=== PATIENT | male | born 1955 | race Caucasian/White ===

== ENCOUNTER → 2019-03-19 | Outpatient (CLI) | payer OTHER | END | disposition home or self-care (01) | LOC: CFH 06:54 | PROVIDERS: ATTEND Internal Medicine Cardiovascular Disease | DX: I08.2 Rheumatic disorders of both aortic and tricuspid valves (principal); I11.0 Hypertensive heart disease with heart failure; E78.5 Hyperlipidemia, unspecified; R00.2 Palpitations; Z72.0 Tobacco use | CPT/HCPCS: 78452; 93017; 93306; A9502 ==

== ENCOUNTER 2019-07-28 15:55 | Inpatient (IN) | payer OTHER, MEDICARE ==
[~2019-07-28] VITALS: Ht 177.8 cm; Wt 84.8 kg
[2019-07-28 17:20] LABS: BASOPHILS # (AUTO) 0.06 x10^3/uL (0-0.1); BASOPHILS % (AUTO) 1 % (0-1); EOSINOPHILS # (AUTO) 0.09 x10^3/uL (0-0.4); EOSINOPHILS % (AUTO) 1 % (1-7); LYMPHOCYTES # (AUTO) 3.05 x10^3/uL (1-3.4); LYMPHOCYTES % (AUTO) 26 % (22-44); MD NO; MEAN CORPUSCULAR HEMOGLOBIN 34.1 pg (27.5-34.5); MEAN CORPUSCULAR HGB CONC 33.8 g/dL (33.2-36.2); MEAN CORPUSCULAR VOLUME 100.9 fL (81-97); MEAN PLATELET VOLUME 9.1 fL (7.4-10.4); MONOCYTES # (AUTO) 1.31 x10^3/uL (0.2-0.8); MONOCYTES % (AUTO) 11 % (2-9); NEUTROPHILS # (AUTO) 7.47 x10^3/uL (1.8-6.8); NEUTROPHILS % (AUTO) 62 % (42-75); PLATELET COUNT 232 x10^3/uL (130-400); RED BLOOD COUNT 4.31 x10^6/uL (4.38-5.82); RED CELL DISTRIBUTION WIDTH 12.7 % (9.4-14.8)
[2019-07-28 17:30] LABS: ALBUMIN 3.9 g/dL (3.4-5.0); ANION GAP 15 mmol/L (5-15); CALCIUM 9.1 mg/dL (8.5-10.1); CHLORIDE 98 mmol/L (98-107)
[2019-07-28 17:35] LABS: ALANINE AMINOTRANSFERASE 71 U/L (12-78); ALKALINE PHOSPHATASE 66 U/L (45-117); BILIRUBIN,TOTAL 0.8 mg/dL (0.2-1.0); CREATININE 2.34 mg/dL (0.7-1.3); TOTAL PROTEIN 7.4 g/dL (6.4-8.2)
[2019-07-28] MEDS ORDERED: ONDANSETRON 2MG/ML, 2ML ONE (17:46)
[2019-07-28] MEDS ORDERED: LORazepam 2 MG/ML, 1ML ONE (17:46)
[2019-07-28] MEDS ORDERED: SODIUM CHLORIDE FLUSH 10ML SYR IVF ONE (18:00)
[2019-07-28] MEDS ORDERED: SODIUM CHLORIDE 0.9% 1,000ML IVBOLUS ONE ×2 (18:00→19:00)
[2019-07-28] MEDS ORDERED: ONDANSETRON 2MG/ML, 2ML IVPush ONE (18:00)
[2019-07-28] MEDS ORDERED: NS + 20MEQ KCL 1,000 ML IV SCH (18:00)
[2019-07-28] MEDS ORDERED: LORazepam 2 MG/ML, 1ML IVPush ONE (18:00)
[2019-07-28] MEDS ORDERED: MAGNESIUM SULFATE 1 GM, THIAMINE 100 MG, FOLIC ACID 1 MG, MVI ADULT 10 ML in SODIUM CHL... IV ONE (18:00)
[2019-07-28] MEDS ORDERED: NS + 20MEQ KCL 1,000 ML IV ONE (18:18)
[2019-07-28] MEDS ORDERED: POLYETHYLENE GLYCOL 17 GM PACKET PO PRN (19:00)
[2019-07-28] MEDS ORDERED: LORazepam 2 MG/ML, 1ML IVPush PRN (19:00)
[2019-07-28] MEDS ORDERED: ONDANSETRON 2MG/ML, 2ML IVPush PRN (19:00)
[2019-07-28] MEDS ORDERED: BISACODYL 10 MG SUPP PR PRN (19:00)
[2019-07-28] MEDS ORDERED: CHLORDIAZEPOXIDE 25 MG CAPSULE ONE (19:36)
[2019-07-28] MEDS: CHLORDIAZEPOXIDE 25 MG CAPSULE PO PRN (19:38)
--- NOTE | 2019-07-28 19:45 | NUR ---
PT UP TO RESTROOM AND BACK WITHOUT ANY ASSISTANCE, STRONG STEADY INDEPENDENT GAIT. DENIES ANY PAIN AT THIS TIME. FINE TREMORS IN HANDS, PT MEDICATED PER MAR. FLUIDS CONTINUE INFUSING WITHOUT ISSUE. DENIES ANY NEEDS OR CONCERNS. CALL LIGHT IN REACH. REPORT TO AN [place] RN. PT AWAITING TRANSPORT AT THIS TIME.
[2019-07-28 20:45] VITALS: BP 111/72
[2019-07-28] MEDS ORDERED: lisinopril PO (21:01)
[2019-07-28] MEDS ORDERED: METO25TA91 PO (21:04)
[2019-07-28] MEDS ORDERED: amlodipine PO (21:04)
[2019-07-28] MEDS ORDERED: sertraline PO (21:04)
[2019-07-28] MEDS ORDERED: OMEP20TA62 PO (21:04)
[2019-07-28] MEDS ORDERED: Diuretic PO (21:04)
[2019-07-28] MEDS: NICOTINE 14MG/24 HR PATCH.TD24 TD SCH (22:24)
[2019-07-28] MEDS: SERTRALINE 50MG TABLET PO SCH (22:24)
[2019-07-28] MEDS: morphine SULFATE 10 MG/ML, 1ML IVPush PRN (22:24)
[2019-07-28] MEDS: POTASSIUM CHLORIDE 20 MEQ, MAGNESIUM SULFATE 1 GM, FOLIC ACID 1 MG, THIAMINE 200 MG, MV... IV SCH (23:04)
[2019-07-29] MEDS ORDERED: ALBUTEROL SULFATE 2.5 MG/3 ML ONE (00:17)
[2019-07-29 00:36] VITALS: BP 111/65
[2019-07-29] MEDS: ALBUTEROL/IPRATROPIUM 2.5MG/0.5MG, 3 ML NPPB SCH ×2 (03:00→08:50)
[2019-07-29] MEDS: morphine SULFATE 10 MG/ML, 1ML IVPush PRN ×2 (03:40→09:51)
[2019-07-29] MEDS ORDERED: ROSU20TA2 PO (05:57)
[2019-07-29] MEDS ORDERED: diuretic PO (05:57)
[2019-07-29] MEDS ORDERED: METO-93 PO (05:57)
[2019-07-29] MEDS ORDERED: albuterol IH (05:57)
[2019-07-29] MEDS ORDERED: LISI40TA PO (05:57)
[2019-07-29] MEDS ORDERED: SERT50TA28 PO (05:57)
[2019-07-29] MEDS ORDERED: AMLO10TA8 PO (05:57)
[2019-07-29 06:27] LABS: BASOPHILS # (AUTO) 0.04 x10^3/uL (0-0.1); BASOPHILS % (AUTO) 1 % (0-1); EOSINOPHILS # (AUTO) 0.15 x10^3/uL (0-0.4); EOSINOPHILS % (AUTO) 2 % (1-7); LYMPHOCYTES # (AUTO) 2.18 x10^3/uL (1-3.4); LYMPHOCYTES % (AUTO) 33 % (22-44); MD NO; MEAN CORPUSCULAR HEMOGLOBIN 34.3 pg (27.5-34.5); MEAN CORPUSCULAR HGB CONC 33.5 g/dL (33.2-36.2); MEAN CORPUSCULAR VOLUME 102.3 fL (81-97); MEAN PLATELET VOLUME 8.6 fL (7.4-10.4); MONOCYTES # (AUTO) 0.83 x10^3/uL (0.2-0.8); MONOCYTES % (AUTO) 12 % (2-9); NEUTROPHILS # (AUTO) 3.48 x10^3/uL (1.8-6.8); NEUTROPHILS % (AUTO) 52 % (42-75); PLATELET COUNT 140 x10^3/uL (130-400); RED BLOOD COUNT 3.25 x10^6/uL (4.38-5.82); RED CELL DISTRIBUTION WIDTH 12.5 % (9.4-14.8)
[2019-07-29 06:36] LABS: ALBUMIN 2.7 g/dL (3.4-5.0); ANION GAP 7 mmol/L (5-15); CALCIUM 7.7 mg/dL (8.5-10.1); CHLORIDE 107 mmol/L (98-107)
[2019-07-29 06:40] LABS: ALANINE AMINOTRANSFERASE 51 U/L (12-78); ALKALINE PHOSPHATASE 45 U/L (45-117); BILIRUBIN,TOTAL 0.6 mg/dL (0.2-1.0); TOTAL PROTEIN 5.2 g/dL (6.4-8.2)
[2019-07-29 08:31] VITALS: BP 118/74
[2019-07-29] MEDS: CHLORDIAZEPOXIDE 25 MG CAPSULE PO PRN ×2 (08:49→17:44)
[2019-07-29] MEDS: SENNA/DOCUSATE TABLET PO SCH (08:49)
[2019-07-29] MEDS ORDERED: LORazepam 1MG TABLET PO PRN (12:00)
[2019-07-29 14:30] VITALS: BP 100/65
[2019-07-29] MEDS ORDERED: ALBUTEROL/IPRATROPIUM 2.5MG/0.5MG, 3 ML NPPB PRN (15:00)
[2019-07-29] MEDS: MORPHINE SULFATE 4 MG/ML, 1ML IVPush PRN ×3 (15:05→23:34)
[2019-07-29 18:52] VITALS: BP 138/79
[2019-07-29] MEDS: NICOTINE 14MG/24 HR PATCH.TD24 TD SCH (20:03)
[2019-07-29] MEDS: SERTRALINE 50MG TABLET PO SCH (20:04)
[2019-07-29] MEDS: POTASSIUM CHLORIDE 20 MEQ, MAGNESIUM SULFATE 1 GM, FOLIC ACID 1 MG, THIAMINE 200 MG, MV... IV SCH (23:11)
[2019-07-30 01:31] VITALS: BP 115/73
[2019-07-30] MEDS: MORPHINE SULFATE 4 MG/ML, 1ML IVPush PRN ×3 (04:39→13:27)
[2019-07-30 06:17] LABS: BASOPHILS # (AUTO) 0.03 x10^3/uL (0-0.1); BASOPHILS % (AUTO) 1 % (0-1); EOSINOPHILS # (AUTO) 0.14 x10^3/uL (0-0.4); EOSINOPHILS % (AUTO) 3 % (1-7); LYMPHOCYTES # (AUTO) 1.84 x10^3/uL (1-3.4); LYMPHOCYTES % (AUTO) 34 % (22-44); MD NO; MEAN CORPUSCULAR HEMOGLOBIN 34.3 pg (27.5-34.5); MEAN CORPUSCULAR HGB CONC 33.7 g/dL (33.2-36.2); MEAN CORPUSCULAR VOLUME 101.7 fL (81-97); MEAN PLATELET VOLUME 8.8 fL (7.4-10.4); MONOCYTES # (AUTO) 0.67 x10^3/uL (0.2-0.8); MONOCYTES % (AUTO) 13 % (2-9); NEUTROPHILS # (AUTO) 2.69 x10^3/uL (1.8-6.8); NEUTROPHILS % (AUTO) 50 % (42-75); PLATELET COUNT 162 x10^3/uL (130-400); RED BLOOD COUNT 3.35 x10^6/uL (4.38-5.82); RED CELL DISTRIBUTION WIDTH 12.9 % (9.4-14.8)
[2019-07-30 06:26] LABS: ALBUMIN 2.8 g/dL (3.4-5.0); ANION GAP 7 mmol/L (5-15); CALCIUM 8.6 mg/dL (8.5-10.1); CHLORIDE 106 mmol/L (98-107)
[2019-07-30 06:32] LABS: ALANINE AMINOTRANSFERASE 52 U/L (12-78); ALKALINE PHOSPHATASE 47 U/L (45-117); BILIRUBIN,TOTAL 0.6 mg/dL (0.2-1.0); CREATININE 0.72 mg/dL (0.7-1.3); TOTAL PROTEIN 5.5 g/dL (6.4-8.2)
[2019-07-30 07:08] VITALS: BP 135/77
[2019-07-30] MEDS: SENNA/DOCUSATE TABLET PO SCH (09:00)
[2019-07-30 12:50] VITALS: BP 122/67
[2019-07-30] MEDS ORDERED: OMEP20TA62 PO (14:48)
== END 2019-07-30 16:16 | disposition home or self-care (01) | DRG 438 ==
LOC: ED 16:57 → EDIP 18:09 → 4EST 20:22 → DCLOUNGE 07-30 16:12
PROVIDERS: ADMIT Family Medicine; ATTEND Internal Medicine
DX: K85.20 Alcohol induced acute pancreatitis without necrosis or infection (principal); N17.0 Acute kidney failure with tubular necrosis; E87.1 Hypo-osmolality and hyponatremia; F10.239 Alcohol dependence with withdrawal, unspecified; E78.5 Hyperlipidemia, unspecified; E86.0 Dehydration; E87.6 Hypokalemia; F17.210 Nicotine dependence, cigarettes, uncomplicated; I10 Essential (primary) hypertension; K70.9 Alcoholic liver disease, unspecified; K76.0 Fatty (change of) liver, not elsewhere classified; G89.29 Other chronic pain; M54.9 Dorsalgia, unspecified; I95.9 Hypotension, unspecified; R00.0 Tachycardia, unspecified; Z80.0 Family history of malignant neoplasm of digestive organs
CPT/HCPCS: 36415; 96374; 96375; 99285; J7121; 76700; 80053; 83690; 83735; 84100; 85025; 93005; 94640; G0378; J2405; J3411; J3475; J3480; J2060; J2270; J7030

== ENCOUNTER → 2020-02-05 | Outpatient (CLI) | payer OTHER, MEDICARE ==
[~2020-02-05] MED LIST: AMLO-211 PO; Diuretic PO; LISI40TA PO; METO-93 PO; METO25TA91 PO; OMEP20TA62 PO; ROSU20TA2 PO; SERT50TA28 PO; albuterol IH; amlodipine PO; diuretic PO; lisinopril PO; sertraline PO
== END | disposition home or self-care (01) ==
LOC: STAR 10:22
PROVIDERS: ATTEND Anesthesiology
DX: Z20.828 Contact with and (suspected) exposure to other viral communicable diseases (principal)
CPT/HCPCS: 87635

== ENCOUNTER 2020-02-07 14:43 | Inpatient (IN) | payer OTHER, MEDICARE ==
[~2020-02-07] VITALS: Ht 177.8 cm; Wt 77.9 kg
--- NOTE | 2020-02-07 15:14 | NUR ---
THIS IS A 64 YO M W/ C/O VOMITING X1 WEEK AND ABD PAIN X3 DAYS. PT REPORTS SYNCOPAL EPISODE YESTERDAY. PT REPORTS HX OF HTN AND PANCREATITIS. DENIES CHANGES IN BP MEDS. PT HYPOTENSIVE, OTHER VS WDL. PT RESTING ON GURNEY W/ CALL LIGHT IN REACH, SIDE RAILS UPX2 AND FAMILY AT BEDSIDE. CONVERSING W/O DIFFICULTY, NADN.
--- NOTE | 2020-02-07 15:16 | NUR ---
PIV STARTED, LABS DRAWN AND SENT. IV BOLUS STARTED, PT TAKEN TO RAD.
[2020-02-07] MEDS ORDERED: ONDANSETRON 2MG/ML, 2ML ONE (15:22)
[2020-02-07] MEDS ORDERED: FAMOTIDINE 20 MG/2 ML ONE (15:22)
[2020-02-07] MEDS ORDERED: FENTANYL PF 100 MCG/2ML ONE (15:22)
[2020-02-07 15:23] LABS: BASOPHILS % (AUTO) 1 % (0-1); EOSINOPHILS % (AUTO) 2 % (1-7); LYMPHOCYTES % (AUTO) 28 % (22-44); MEAN CORPUSCULAR HEMOGLOBIN 34.1 pg (27.5-34.5); MEAN CORPUSCULAR HGB CONC 35.1 g/dL (33.2-36.2); MEAN PLATELET VOLUME 8.3 fL (7.4-10.4); MONOCYTES % (AUTO) 9 % (2-9); NEUTROPHILS % (AUTO) 61 % (42-75); PLATELET COUNT 335 x10^3/uL (130-400); RED BLOOD COUNT 4.63 x10^6/uL (4.38-5.82); RED CELL DISTRIBUTION WIDTH 12.6 % (9.4-14.8)
[2020-02-07 15:25] LABS: MD NO
[2020-02-07] MEDS ORDERED: FENTANYL PF 100 MCG/2ML IVPush ONE (15:30)
[2020-02-07] MEDS ORDERED: ONDANSETRON 2MG/ML, 2ML IVPush ONE (15:30)
[2020-02-07] MEDS ORDERED: SODIUM CHLORIDE 0.9% 1,000ML IVBOLUS ONE ×2 (15:30→16:30)
[2020-02-07] MEDS ORDERED: SODIUM CHLORIDE FLUSH 10ML SYR IVF ONE (15:30)
[2020-02-07] MEDS ORDERED: FAMOTIDINE 20 MG/2 ML IVPush ONE (15:30)
[2020-02-07 15:36] LABS: ALANINE AMINOTRANSFERASE 59 U/L (12-78); ALBUMIN 4.2 g/dL (3.4-5.0); ANION GAP 14 mmol/L (5-15); CALCIUM 8.7 mg/dL (8.5-10.1); CHLORIDE 88 mmol/L (98-107); CREATININE 6.85 mg/dL (0.7-1.3)
[2020-02-07 15:38] LABS: ALKALINE PHOSPHATASE 72 U/L (45-117); BILIRUBIN,TOTAL 0.3 mg/dL (0.2-1.0); TOTAL PROTEIN 7.8 g/dL (6.4-8.2)
--- NOTE | 2020-02-07 16:03 | NUR ---
PT PROVIDED W/ URINAL, EDUCATED ON NEED FOR SAMPLE.
--- NOTE | 2020-02-07 16:06 | NUR ---
PT STATES THAT HE IS UNABLE TO PROVIDE URINE SAMPLE AT THIS TIME.
--- NOTE | 2020-02-07 16:12 | NUR ---
MED LINK FROM PHARMACY.
[2020-02-07] MEDS ORDERED: POTASSIUM CHLORIDE 20 MEQ TAB.ER.PRT PO ONE (16:30)
[2020-02-07] MEDS ORDERED: POTASSIUM CHLORIDE 40 MEQ in SODIUM CHLORIDE 0.9% 500 ML IV ONE (16:30)
[2020-02-07] MEDS ORDERED: LACTATED RINGERS 1,000 ML IVBOLUS ONE ×2 (16:30→17:00)
--- NOTE | 2020-02-07 16:43 | NUR ---
PT ONLY ABLE TO PROUCE APPROX 10 ML URINE. COLLECTED AND WALKED TO LAB.
[2020-02-07] MEDS ORDERED: POTASSIUM CHLORIDE 20 MEQ TAB.ER.PRT ONE (16:44)
[2020-02-07] MEDS ORDERED: LACTATED RINGERS 1,000 ML IV SCH (17:00)
--- NOTE | 2020-02-07 17:05 | NUR ---
ADMITTING PROVIDER AT BEDSIDE.
[2020-02-07 17:13] LABS: MICROSCOPIC INDICATED
[2020-02-07] MEDS ORDERED: GUAIFENESIN/DM 200-20MG, 10ML UDC PO PRN (17:30)
[2020-02-07] MEDS ORDERED: morphine SULFATE 10 MG/ML, 1ML IVPush PRN (17:30)
[2020-02-07] MEDS ORDERED: hydrALAzine 20 MG/ML, 1ML IVPush PRN (17:30)
[2020-02-07] MEDS ORDERED: CYCLOBENZAPRINE 10 MG TABLET PO PRN (17:30)
[2020-02-07] MEDS ORDERED: ACETAMINOPHEN 325 MG TABLET PO PRN (17:30)
[2020-02-07] MEDS ORDERED: DOCUSATE 100 MG CAPSULE PO PRN (17:30)
[2020-02-07] MEDS ORDERED: ONDANSETRON 2MG/ML, 2ML IVPush PRN (17:30)
[2020-02-07] MEDS: LACTATED RINGERS 1,000 ML IV SCH (18:09)
[2020-02-07] MEDS ORDERED: HEPARIN 5,000 UNITS/ML, 1ML ONE (18:13)
[2020-02-07] MEDS: HEPARIN 5,000 UNITS/ML, 1ML SQ SCH (18:15)
[2020-02-07 19:45] VITALS: BP 98/60
[2020-02-07] MEDS: OXYcodone IR 5MG TABLET PO PRN (21:43)
[2020-02-07] MEDS: NICOTINE 7 MG/24 HR PATCH.TD24 TD SCH (21:43)
[2020-02-08] MEDS: HEPARIN 5,000 UNITS/ML, 1ML SQ SCH ×4 (01:40→23:05)
[2020-02-08] MEDS: OXYcodone IR 5MG TABLET PO PRN ×6 (01:45→23:01)
[2020-02-08 01:48] VITALS: BP 97/62
[2020-02-08] MEDS: LACTATED RINGERS 1,000 ML IV SCH ×3 (03:30→19:30)
[2020-02-08 05:31] LABS: BASOPHILS % (AUTO) 1 % (0-1); EOSINOPHILS % (AUTO) 3 % (1-7); LYMPHOCYTES % (AUTO) 44 % (22-44); MEAN CORPUSCULAR HGB CONC 34.7 g/dL (33.2-36.2); MEAN PLATELET VOLUME 9.1 fL (7.4-10.4); MONOCYTES % (AUTO) 12 % (2-9); NEUTROPHILS % (AUTO) 40 % (42-75); PLATELET COUNT 223 x10^3/uL (130-400); RED BLOOD COUNT 3.94 x10^6/uL (4.38-5.82); RED CELL DISTRIBUTION WIDTH 12.6 % (9.4-14.8)
[2020-02-08 05:36] LABS: ANION GAP 7 mmol/L (5-15); CALCIUM 8.2 mg/dL (8.5-10.1); CHLORIDE 102 mmol/L (98-107); CREATININE 4.61 mg/dL (0.7-1.3)
[2020-02-08 05:54] LABS: MD SCAN
[2020-02-08 07:23] VITALS: BP 103/65
[2020-02-08 12:45] VITALS: BP 114/72
[2020-02-08 22:59] VITALS: BP 95/54
[2020-02-08] MEDS: NICOTINE 7 MG/24 HR PATCH.TD24 TD SCH (23:01)
[2020-02-08] MEDS: ZOLPIDEM 5MG TABLET PO PRN (23:04)
[2020-02-09 02:48] VITALS: BP 115/71
[2020-02-09 05:47] LABS: BASOPHILS % (AUTO) 1 % (0-1); EOSINOPHILS % (AUTO) 3 % (1-7); LYMPHOCYTES % (AUTO) 35 % (22-44); MEAN CORPUSCULAR HEMOGLOBIN 33.7 pg (27.5-34.5); MEAN CORPUSCULAR HGB CONC 34.8 g/dL (33.2-36.2); MEAN PLATELET VOLUME 8.9 fL (7.4-10.4); MONOCYTES % (AUTO) 15 % (2-9); NEUTROPHILS % (AUTO) 46 % (42-75); PLATELET COUNT 230 x10^3/uL (130-400); RED BLOOD COUNT 4.03 x10^6/uL (4.38-5.82); RED CELL DISTRIBUTION WIDTH 12.5 % (9.4-14.8)
[2020-02-09 05:52] LABS: CHLORIDE 105 mmol/L (98-107); MD NO
[2020-02-09 05:55] LABS: ANION GAP 7 mmol/L (5-15); CALCIUM 8.7 mg/dL (8.5-10.1); CREATININE 2.39 mg/dL (0.7-1.3)
[2020-02-09] MEDS: LACTATED RINGERS 1,000 ML IV SCH ×3 (06:38→23:01)
[2020-02-09 07:40] VITALS: BP 134/82
[2020-02-09] MEDS: OXYcodone IR 5MG TABLET PO PRN ×2 (08:54→18:27)
[2020-02-09] MEDS: HEPARIN 5,000 UNITS/ML, 1ML SQ SCH ×2 (08:54→17:19)
[2020-02-09] MEDS ORDERED: ONDANSETRON 2MG/ML, 2ML ONE (12:30)
[2020-02-09] MEDS ORDERED: DEXAMETHASONE 4 MG/ML, 1ML ONE (12:30)
[2020-02-09] MEDS ORDERED: PROPOFOL 10 MG/ML, 20ML ONE (12:30)
[2020-02-09] MEDS ORDERED: GLYCOPYRROLATE 0.2MG/1ML, 5ML ONE (12:30)
[2020-02-09] MEDS ORDERED: FENTANYL PF 100 MCG/2ML IV PRN (13:30)
[2020-02-09] MEDS ORDERED: OXYcodone 5 MG/5 ML ORAL.SOL UDC ONE (13:33)
[2020-02-09] MEDS ORDERED: OXYcodone 5 MG/5 ML ORAL.SOL UDC PO ONE (14:00)
[2020-02-09 15:05] VITALS: BP 152/84
[2020-02-09 18:23] VITALS: BP 122/72
[2020-02-09] MEDS: ZOLPIDEM 5MG TABLET PO PRN (20:27)
[2020-02-09] MEDS: NICOTINE 7 MG/24 HR PATCH.TD24 TD SCH (20:28)
[2020-02-10] MEDS: HEPARIN 5,000 UNITS/ML, 1ML SQ SCH ×2 (00:45→08:59)
[2020-02-10] MEDS: OXYcodone IR 5MG TABLET PO PRN ×2 (00:46→04:33)
[2020-02-10 01:46] VITALS: BP 135/80
[2020-02-10 05:45] LABS: CALCIUM 8.6 mg/dL (8.5-10.1); CHLORIDE 106 mmol/L (98-107)
[2020-02-10 05:48] LABS: ANION GAP 5 mmol/L (5-15); CREATININE 1.65 mg/dL (0.7-1.3)
[2020-02-10] MEDS: LACTATED RINGERS 1,000 ML IV SCH (06:47)
[2020-02-10 08:53] VITALS: BP 147/75
== END 2020-02-10 11:05 | disposition home or self-care (01) | DRG 73 ==
LOC: ED 16:32 → 5SO 20:03 → DCLOUNGE 02-10 10:57
PROVIDERS: ADMIT Internal Medicine; ATTEND Internal Medicine
DX: G90.8 Other disorders of autonomic nervous system (principal); N17.0 Acute kidney failure with tubular necrosis; I25.3 Aneurysm of heart; K86.1 Other chronic pancreatitis; E87.1 Hypo-osmolality and hyponatremia; E87.3 Alkalosis; E86.0 Dehydration; Z20.828 Contact with and (suspected) exposure to other viral communicable diseases; I95.2 Hypotension due to drugs; E87.6 Hypokalemia; E87.8 Other disorders of electrolyte and fluid balance, not elsewhere classified; J44.9 Chronic obstructive pulmonary disease, unspecified; R55 Syncope and collapse; E86.1 Hypovolemia; F10.10 Alcohol abuse, uncomplicated; F12.90 Cannabis use, unspecified, uncomplicated; F17.290 Nicotine dependence, other tobacco product, uncomplicated; G56.00 Carpal tunnel syndrome, unspecified upper limb; G89.29 Other chronic pain; I10 Essential (primary) hypertension; I35.8 Other nonrheumatic aortic valve disorders; I48.91 Unspecified atrial fibrillation; M47.9 Spondylosis, unspecified; M48.00 Spinal stenosis, site unspecified; K64.9 Unspecified hemorrhoids; M54.2 Cervicalgia; M54.5 Low back pain; Z80.0 Family history of malignant neoplasm of digestive organs; Z88.8 Allergy status to other drugs, medicaments and biological substances; Z79.899 Other long term (current) drug therapy; Z79.891 Long term (current) use of opiate analgesic; Z79.01 Long term (current) use of anticoagulants
CPT/HCPCS: 36415; 72072; 72125; 72148; 76770; 80053; 80069; 81001; 82150; 83690; 83735; 85025; 87086; 87635; 93005; 93306; G0378; J1100; J1644; J2405; J2704; J3010; J3480; J7030; J7040; J7120

== ENCOUNTER 2020-10-29 11:03 | Emergency (ER) | payer MEDICARE, OTHER ==
[~2020-10-29] VITALS: Ht 177.8 cm; Wt 73.7 kg
[~2020-10-29 11:03] MED LIST changes: -LISI40TA PO; +LISI40TA9 PO
[2020-10-29] MEDS ORDERED: PRAV10TA2 PO (11:29)
[2020-10-29] MEDS ORDERED: LORazepam 1MG TABLET ONE (11:32)
--- NOTE | 2020-10-29 11:37 | NUR ---
PT PLACED ON ALL ROOM MONITORING. NO HX OF SEIZURE WITH ALCOHOL WITHDRAWAL. LAST INPT DETOX TREATMENT WAS APPROX ONE YEAR AGO WITH PT RELAPSING AFTER ONE MONTH. PT STATES QUIT DRINKING FIVE DAYS AGO. AH, VH FOR FIRST TWO DAYS-NONE NOW. PT FEELS ANXIOUS AND TREMOROUS. URINAL PROVIDED, CALL LIGHT WITHIN REACH, WARM BLANKET OFFERED. AT BS.
[2020-10-29] MEDS ORDERED: LORazepam 1MG TABLET PO ONE (12:00)
[2020-10-29 12:08] LABS: BASOPHILS % (AUTO) 1 % (0-1); EOSINOPHILS % (AUTO) 1 % (1-7); LYMPHOCYTES % (AUTO) 23 % (22-44); MEAN CORPUSCULAR HEMOGLOBIN 35.6 pg (27.5-34.5); MEAN PLATELET VOLUME 7.7 fL (7.4-10.4); MONOCYTES % (AUTO) 17 % (2-9); NEUTROPHILS % (AUTO) 59 % (42-75); PLATELET COUNT 277 x10^3/uL (130-400); RED BLOOD COUNT 4.16 x10^6/uL (4.38-5.82); RED CELL DISTRIBUTION WIDTH 13.1 % (9.4-14.8)
[2020-10-29 12:21] LABS: ALBUMIN 3.4 g/dL (3.4-5.0); ANION GAP 6 mmol/L (5-15); CALCIUM 9.3 mg/dL (8.5-10.1); CHLORIDE 100 mmol/L (98-107)
[2020-10-29 12:25] LABS: ALANINE AMINOTRANSFERASE 84 U/L (12-78); ALKALINE PHOSPHATASE 67 U/L (45-117); BILIRUBIN,TOTAL 0.6 mg/dL (0.2-1.0); CREATININE 0.98 mg/dL (0.7-1.3); TOTAL PROTEIN 6.7 g/dL (6.4-8.2)
--- NOTE | 2020-10-29 12:37 | NUR ---
TREMORS LESSENED, PT STATES FEELS SLIGHTLY BETTER. ALL LAB RESULTS BACK, PT FOR RECHECK.
[2020-10-29 12:40] VITALS: BP 108/67
== END 2020-10-29 13:08 | disposition home or self-care (01) ==
LOC: ED 12:07
DX: F10.239 Alcohol dependence with withdrawal, unspecified (principal); Y90.9 Presence of alcohol in blood, level not specified; F17.210 Nicotine dependence, cigarettes, uncomplicated
CPT/HCPCS: 36415; 80053; 83690; 85025; 99283; 99406